=== PATIENT | female | born 1990 | race Caucasian/White ===

== ENCOUNTER 2020-01-25 16:00 | Outpatient (RCR) | payer BC, SELFPAY ==
[2020-01-11 17:33] LABS: Beta HCG Quantitative 79.02 mIU/ML
[2020-01-18 17:42] LABS: Beta HCG Quantitative 8.35 mIU/ML
--- NOTE | ~2020-01-25 | US_ITS ---
EXAMINATION: US OB <=14 wk fetus w TV DATE: 01/02/2020 16:09 INDICATION: Threatened with spotting and cramping during first trimester TECHNIQUE: Real-time pelvic ultrasound utilizing both a transvaginal and transabdominal probe was pe rformed. The interpreting radiologist was not present for the study. COMPARISON: None. FINDINGS: The uterus measures 9.6 x 5.5 x 4.5 cm. There is an intrauterine gestational sac. A yolk sac and fet al pole are identified. The crown rump length measures 3 mm, which correlates with an estimated gesta tional age of 5 weeks and 6 days. No definitive heart motion identified. The arterial flow with heart rate of 97 identified by the freight receiver appears to represent maternal circulation within the endometrium. The right ovary measures 2.2 x 1.4 x 1.6 cm. The left ovary measures 2.1 x 1.6 x 1.7 cm. And 1.3 charli lar anechoic likely corpus luteum cyst in the right ovary. There is no free fluid in the pelvis. IMPRESSION: 1. Intrauterine gestational sac with single yolk sac and pole without discernible heart motion likely due to early stage of . 2. Gestational age by ultrasound of 5 weeks 6 day(s) +/- 4 day(s) with ultrasound estimated date of delivery ([facility]) of 08/28/2020. Reviewed, dictated and finalized at location B. IMPRESSION: 1. Intrauterine gestational sac with single yolk sac and pole without dis cernible heart motion likely due to early stage of . 2. Gestational age by ultrasound of 5 weeks 6 day(s) +/- 4 day(s) with ultraso und estimated date of delivery ([facility]) of 08/28/2020.
[2020-01-25 17:37] LABS: Beta HCG Quantitative < 2.39 mIU/ML
== END 2020-04-01 23:59 | disposition home or self-care (01) ==
LOC: ANHIMG 16:00
PROVIDERS: PCP Family Medicine; Visit Provider Obstetrics & Gynecology
DX: Z29.13 Encounter for prophylactic Rho(D) immune globulin (principal); O36.0130 Maternal care for anti-D [Rh] antibodies, third trimester, not applicable or unspecified; O20.0 Threatened abortion; Z3A.01 Less than 8 weeks gestation of pregnancy
CPT/HCPCS: 36415; 76801; 76817; 84702; 85461

== ENCOUNTER 2022-03-29 07:16 | Outpatient (CLI) | payer BC, SELFPAY ==
[2022-03-29 08:10] LABS: Hemoglobin 11.3 g/dL (12.0-15.0); Mean Corpuscular HGB Conc 33.2 g/dl (32-36); Mean Corpuscular Hemoglobin 28.2 pg (26-34); Mean Corpuscular Volume 84.8 fl (80-100); Mean Platelet Volume 11.7 fl (7.4-10.4); Platelet Count Result 224 k/mm3 (150-375); Red Blood Count 4.01 M/mm3 (4.2-5.4); Red Cell Distribution Width 14.8 % (11.5-14.5); White Blood Count 10.8 K/mm3 (4.5-10.0)
[2022-03-31 12:44] LABS: Rapid Plasma Reagin Non-Reactive (NonReactive)
== END 2022-03-29 07:17 | disposition home or self-care (01) ==
LOC: ANHLAB 07:18
PROVIDERS: Visit Provider Obstetrics & Gynecology
DX: Z01.818 Encounter for other preprocedural examination (principal)
CPT/HCPCS: 36415; 85027; 86592; 86850; 86900; 86901

== ENCOUNTER 2022-03-31 05:22 | Inpatient (IN) | payer BC, SELFPAY ==
--- NOTE | 2022-03-19 15:38 | PC.NURSE ---
Verified with OR schedule and patient--C/S on 03/31/22 at 0730 Patient given requisition fo rlab draw on 03/29/22
--- NOTE | 2022-03-29 11:13 | WPDANESEPPF ---
Anes - Initial Pre Proc Eval Procedure: Operation Date: 03/31/22 07:30 Proposed Procedures p Primary Section - Chanda Stevenson MD Date/Time: 03/29/22 11:13 Surgeon: Chanda Stevenson MD Pre Op Diagnosis: c/s Patient Data Age: 31 Gender: F Height: Weight: Allergies Allergy/AdvReac Type Severity Reaction Status Date / Time No Known Allergies Allergy Mild Verified 03/31/22 06:19 Home Medications Medication Instructions Recorded Confirmed Type aspirin 81 mg tablet,delayed 162 mg PO DAILY 03/19/22 03/31/22 History release (Jessika Low Dose Aspirin) ferrous sulfate 143 mg (45 mg 143 mg PO DAILY 03/19/22 03/31/22 History iron) tablet,extended release labetalol 100 mg tablet 100 mg PO Q12H 03/19/22 03/31/22 History nifedipine 30 mg tablet,extended 30 mg PO DAILY 03/19/22 03/31/22 History release 24 hr (Procardia XL) pantoprazole 40 mg tablet,delayed 40 mg PO QAM 03/19/22 03/31/22 History release Patient hx anesthesia problems: none Family hx anesthesia problems: none Results Review: All pre-operative results and documents have been reviewed as part of the pre-operative evaluation. [facility] Family History Family History (Updated 03/19/22 @ 15:18 by Nehemiah Galeano RN) Grandparent Breast cancer in female Grandparent Congestive heart failure Diabetes mellitus Grandparent ALS (amyotrophic lateral sclerosis) Mother Hypothyroidism Social History Social History Smoking status: Never smoker Second hand tobacco smoke exposure: No Substance use: never Lack of Transportation: No Lack of Food: Never True Current Housing: I Have Housing Concerned About Future Housing: No Difficulty Paying Gas/Electric Bills: No Difficulty Paying for Meds: No Currently Unemployed: No Education: Associate Degree Difficulty w/ Childcare or Family Care: No Spiritual care concerns: No Anes - Eval Final PreProcedure Day of Procedure 03/29/22 11:13 Patient weight: obese Heart: regular rate and rhythm Lungs: clear to auscultation and normal air movement Airway: Mallampati scale class II Neurological: alert and oriented Last oral intake: >/= 8 hours ASA classification: III Emergent: no Anesthetic plan: proceed Anesthesia type and monitoring: regional spinal Results Review: All pre-operative results and documents have been reviewed as part of the pre-operative evaluation. Informed Consent: The patient's anesthetic plan and its attendant risks and benefits were discussed with the patient/family/POA. Questions were solicited and answers provided to the satisfaction of the patient/family/POA.
[2022-03-31] VITALS (61 sets, daily range): BP systolic 71–139; BP diastolic 28–89; PULSE 63–101; RESP 14–22; TEMP 36.1–36.7; O2SAT 92–98; BMI 46.5
--- OUTSIDE RECORDS SUMMARY | 2022-03-31 05:27 | XMS_ITS | Encounter Summary ---
:1990 Author Reason for Visit None recorded. Assessment and Plan 1. Chronic hypertension complicating AN D/OR reason for care during ? US, obstetric, biophysical profile + non-stress test Discussion Note: None recorded.Patient educational handouts: No information available. Plan of Care Reminders Provider Appointments Surg Post Op 04/07/2022 Chanda stone MD 9:45AM Lab None recorded. ? ? Referral None recorded. ? ? Procedures None recorded. ? ? Surgeries None recorded. ? ? Imaging US, Obstetric, Biophysical 03/19/2022 [facility] Profile + Non-stress Test Medications Name Start Date ? ? labetalol 100 mg tablet ? TAKE 1 TABLET BY MOUTH TWICE DAILY nifedipine ER 30 mg tablet,extended release 24 hr ? TAKE 1 TABLET BY MOUTH EVERY DAY pantoprazole 40 mg tablet,delayed release ? TAKE 1 TABLET BY MOUTH EVERY DAY triamcinolone acetonide 0.1 % topical cream ? APPLY SMALL AMOUNT TOPICALLY TO THE AFFECTED AREA BRETT RY 6 TO 8 HOURS Medications Administered None recorded. Vitals None recorded. Results Lab Results None recorded. Allergies None recorded. Problems Name Status Onset Date Source ? Maternal Obesity Complicating , Childbirth and the Acti ve 09/09/2021 ? Puerperium, Antepartum Active 10/02/2021 ? History of SARS-CoV-2 Active 10/02/2021 ? Breech Presentation Active ? ? Chronic Hypertension in Obstetric Context Active ? ? Procedures Date Name Performed by ? 02/19/2022 Non-stress Test [place]
--- OUTSIDE RECORDS SUMMARY | 2022-03-31 05:27 | XMS_ITS ---
:1990 Author Care Team Providers Name Role Phone Chanda Stevenson Yuridia Primary Care Provider Unavailable Allergies None recorded. Medications Name Status Start Date Stop Date ? ? labetalol 100 mg tablet Active ? Not avai lable TAKE 1 TABLET BY MOUTH TWICE DAILY metronidazole 500 mg tablet Completed ? 11/02 TK 1 T PO Q 12 H FOR 7 DAYS nifedipine ER 30 mg tablet,extended release 24 hr Active ? Not available TAKE 1 TABLET BY MOUTH EVERY DAY pantoprazole 40 mg tablet,delayed release Active ? Not available TAKE 1 TABLET BY MOUTH EVERY DAY prednisone 20 mg tablet Completed ? 11/30/19 22 TAKE 3 TABLETS BY MOUTH EVERY DAY FOR 5 DAYS Slynd 4 mg (28) tablet Completed ? triamcinolone acetonide 0.1 % topical cream Active ? Not available APPLY SMALL AMOUNT TOPICALLY TO THE AFFECTED AREA EVERY 6 TO 8 HOURS Problems Name Status Onset Date Source ? Maternal Obesity Complicating , Childbirth and the Acti ve 09/09/2021 ? Puerperium, Antepartum Active 10/02/2021 ? History of SARS-CoV-2 Active 10/02/2021 ? Breech Presentation Active ? ? Chronic Hypertension in Obstetric Context Active ? ? Procedures Date Name Performed by ? 01/02/2020 US, Obstetric, Transabdominal + Transvag inal Information not available 10/02/2021 US, Obstetric, Nuchal Translucency Sukhwinder padron [address] [place] [address] ([address]) 11/29/2021 US, Obstetric, 2Nd or 3Rd Trimester Laura aguilera
--- OUTSIDE RECORDS SUMMARY | 2022-03-31 05:27 | XMS_ITS | Encounter Summary ---
:1990 Author Reason for Visit None recorded. Assessment and Plan 1. Chronic hypertension complicating AN D/OR reason for care during ? non-stress test Discussion Note: None recorded.Patient educational handouts: No information available. Plan of Care Reminders Provider Appointments Surg Post Op 04/07/2022 9:45AM Chanda Stevenson MD Lab None recorded. ? ? Referral None recorded. ? ? Procedures None recorded. ? ? Surgeries None recorded. ? ? Imaging Non-stress Test 03/26/2022 [place] Medications Name Start Date ? ? labetalol [...] ? Procedures Date Name Performed by ? 02/26/2022 Non-stress Test [place] [address] [place] [address]
--- OUTSIDE RECORDS SUMMARY | 2022-03-31 05:27 | XMS_ITS | Encounter Summary ---
:1990 Author Reason for Visit None recorded. Assessment and Plan 1. Maternal obesity complicating pregna ncy, childbirth and the puerperium, antepartum ? US, obstetric, follow-up ? US, obstetric, biophysical profile + non-stress test Discussion Note: None recorded.Patient educational handouts: No information available. Plan of Care Reminders Provider Appointments Surg Post Op 04/07/2022 Chanda stone MD 9:45AM Lab None recorded. ? ? Referral None recorded. ? ? Procedures None recorded. ? ? Surgeries None recorded. ? ? Imaging US, Obstetric, Follow-up 03/26/2022 [place] ? US, Obstetric, Biophysical 03/26/2022 Stef[facility] Profile + Non-stress Test Medications [...] Hypertension in Obstetric Context Active ? ? Pr
--- OUTSIDE RECORDS SUMMARY | 2022-03-31 05:27 | XMS_ITS | Encounter Summary ---
:1990 Author Reason for Visit OB visit Assessment and Plan 1. Breech presentation 2. Chronic hypertension in obstetric co ntext 3. Maternal obesity complicating pregna ncy, childbirth and the puerperium, antepartum Discussion Note: None recorded.Patient educational handouts: No information available. Plan of Care Reminders Provider Appointments Surg Post Op 04/07/2022 9:45AM Chanda Stevenson MD Lab None recorded. ? ? Referral None recorded. ? ? Procedures None recorded. ? ? Surgeries None recorded. ? ? Imaging None recorded. ? ? Medications Name Start Date ? ? labetalol [...] 8 HOURS Medications Administered None recorded. Vitals Height Weight BMI Blood Pressure 5 ft 10 in 324 lbs 46.5 kg/m2 (1) 144/99 mm[H g] (2) 142/88 mm[Hg ] Results Lab Results None recorded. Allergies None recorded. Problems Name Status Onset Date Source ? Maternal Obesity Complicating , Childbirth and the Acti ve 09/09/2021 ? Puerperium, Antepartum Active 10/02/2021 ? History of SARS-CoV-2 Active 10/02/2021 ? Breech Presentation Active ? ? Chronic Hypertension in Obstetric Context Active ? ? Procedures
--- OUTSIDE RECORDS SUMMARY | 2022-03-31 05:27 | XMS_ITS | Encounter Summary ---
:1990 Author Reason for Visit OB visit Assessment and Plan 1. Breech presentation 2. Chronic hypertension in obstetric co ntext Discussion Note: None recorded.Patient educational handouts: No [...] ft 10 in 324 lbs 46.5 kg/m2 139/89 mm[Hg] Results Lab Results None recorded. Allergies None recorded. Problems Name Status Onset Date Source ? Maternal Obesity Complicating , Childbirth and the Acti ve 09/09/2021 ? Puerperium, Antepartum Active 10/02/2021 ? History of SARS-CoV-2 Active 10/02/2021 ? Breech Presentation Active ? ? Chronic Hypertension in Obstetric Context Active ? ? Procedures Date Name Performed by ? 02/26/2022 Non-stress Test [place] [id number]
--- OUTSIDE RECORDS SUMMARY | 2022-03-31 05:27 | XMS_ITS | Encounter Summary ---
[...] None recorded. ? ? Imaging Non-stress Test 03/19/2022 [place] Medications Name Start Date ? ? labetalol [...] Name Performed by ? 02/19/2022 Non-stress Test [place] [address] [place] [address]
--- OUTSIDE RECORDS SUMMARY | 2022-03-31 05:28 | XMS_ITS | Encounter Summary ---
:1990 Author Reason for Visit None recorded. Assessment and Plan 1. Maternal obesity complicating pregna ncy, childbirth and the puerperium, antepartum ? US, obstetric, biophysical profile Discussion Note: None recorded.Patient educational handouts: No information available. Plan of Care Reminders Provider Appointments Surg Post Op 04/07/2022 Chanda stone MD 9:45AM Lab None recorded. ? ? Referral None recorded. ? ? Procedures None recorded. ? ? Surgeries None recorded. ? ? Imaging US, Obstetric, Biophysical 02/26/2022 [facility] Profile Medications Name Start Date ? ? labetalol [...] ? Procedures Date Name Performed by ? 01/27/2022 US, Obstetric, Follow-up [place]
--- OUTSIDE RECORDS SUMMARY | 2022-03-31 05:28 | XMS_ITS | Encounter Summary ---
:1990 Author Reason for Visit None recorded. Assessment and Plan 1. Chronic hypertension complicating AN D/OR reason for care during ? US, obstetric, follow-up ? US, obstetric, biophysical profile + non-stress test Discussion Note: None recorded.Patient educational handouts: No information available. Plan of Care Reminders Provider Appointments Surg Post Op 04/07/2022 Chanda stone MD 9:45AM Lab None recorded. ? ? Referral None recorded. ? ? Procedures None recorded. ? ? Surgeries None recorded. ? ? Imaging US, Obstetric, Follow-up 02/19/2022 [place] ? US, Obstetric, Biophysical 02/19/2022 [place] Profile + Non-stress Test Medications Name Start [...]
--- OUTSIDE RECORDS SUMMARY | 2022-03-31 05:28 | XMS_ITS | Encounter Summary ---
:1990 Author Reason for Visit OB visit Assessment and Plan 1. Chronic hypertension in obstetric co ntext ? labetalol 100 mg tablet 2. Breech presentation 3. Maternal obesity complicating pregna ncy, childbirth [...] BMI Blood Pressure 5 ft 10 in 325 lbs 46.6 kg/m2 141/82 mm[Hg] Results Lab Results None recorded. Allergies None recorded. Problems Name Status Onset Date Source ? Maternal Obesity Complicating , Childbirth and the Acti ve 09/09/2021 ? Puerperium, Antepartum Active 10/02/2021 ? History of SARS-CoV-2 Active 10/02/2021 ? Breech Presentation Active ? ? Chronic Hypertension in Obstetric Context Active ? ? Procedures Date
--- OUTSIDE RECORDS SUMMARY | 2022-03-31 05:28 | XMS_ITS | Encounter Summary ---
[...] None recorded. ? ? Imaging Non-stress Test 03/12/2022 [place] Medications Name Start Date ? ? labetalol [...] Name Performed by ? 02/19/2022 Non-stress Test [place] [address] [place] [address]
--- OUTSIDE RECORDS SUMMARY | 2022-03-31 05:28 | XMS_ITS | Encounter Summary ---
[...] recorded. ? ? Imaging US, Obstetric, Biophysical 03/05/2022 Stef[facility] b[facility] Profile + Non-stress Test Medications [...]
--- OUTSIDE RECORDS SUMMARY | 2022-03-31 05:28 | XMS_ITS | Encounter Summary ---
:1990 Author Reason for Visit None recorded. Assessment and Plan 1. Chronic hypertension in obstetric co ntext ? nifedipine ER 30 mg tablet,extended r elease 24 hr 2. Maternal obesity complicating pregna ncy, childbirth and [...] BMI Blood Pressure 5 ft 10 in 318 lbs 45.6 kg/m2 (1) 158/91 mm[H g] (2) 140/88 mm[Hg ] Results Lab Results None recorded. Allergies None recorded. Problems Name Status Onset Date Source ? Maternal Obesity Complicating , Childbirth and the Acti ve 09/09/2021 ? Puerperium, Antepartum Active 10/02/2021 ? History of SARS-CoV-2 Active 10/02/2021 ? Breech Presentation Active ? ? Chronic Hypertension in Obstetric Context Active ?
--- OUTSIDE RECORDS SUMMARY | 2022-03-31 05:28 | XMS_ITS | Encounter Summary ---
[...] None recorded. ? ? Imaging Non-stress Test 03/05/2022 [place] Medications Name Start Date ? ? labetalol [...] Name Performed by ? 02/19/2022 Non-stress Test [place] [address] [place] [address]
--- OUTSIDE RECORDS SUMMARY | 2022-03-31 05:28 | XMS_ITS | Encounter Summary ---
:1990 Author Reason for Visit None recorded. Assessment and Plan 1. Chronic hypertension complicating AN D/OR reason for care during ? US, obstetric, follow-up Discussion Note: None recorded.Patient educational handouts: No information available. Plan of Care Reminders Provider Appointments Surg Post Op 04/07/2022 9:45AM Chanda Stevenson MD Lab None recorded. ? ? Referral None recorded. ? ? Procedures None recorded. ? ? Surgeries None recorded. ? ? Imaging US, Obstetric, 01/27/2022 [place] Follow-up Medications Name Start Date ? ? labetalol [...] Performed by ? 01/27/2022 US, Obstetric, Follow-up [place] [address]
--- OUTSIDE RECORDS SUMMARY | 2022-03-31 05:28 | XMS_ITS | Encounter Summary ---
:1990 Author Reason for Visit OB visit Assessment and Plan 1. Chronic hypertension in obstetric co ntext ? CMP, serum or plasma ? CBC w/ auto diff ? uric acid, serum or plasma ? protein:creatinine ratio, urine 2. Breech presentation ? section (SURG) 3. Gastroesophageal reflux disease ? Protonix 40 mg tablet,delayed release Discussion Note: None recorded.Patient educational handouts: No information available. Plan of Care Reminders Provider Appointments Surg Post Op 04/07/2022 9:45AM Chanda Stevenson MD Lab CMP, Serum or Plasma 02/26/2022 [facility] (Lab) ? CBC W/ Auto Diff 02/26/2022 [facility] (Lab) ? Uric Acid, Serum or 02/26/2022 [facility] Plasma (Lab) ? Protein:creatinine Ratio, 02/26/2022 [facility] Urine (Lab) Referral None recorded. ? ? Procedures None recorded. ? ? Surgeries Section (SURG) 03/31/2022 [facility] None recorded. ? ? Medications Name [...]
--- OUTSIDE RECORDS SUMMARY | 2022-03-31 05:28 | XMS_ITS | Encounter Summary ---
:1990 Author Reason for Visit None recorded. Assessment and Plan 1. Maternal obesity complicating pregna ncy, childbirth and the puerperium, antepartum ? US, obstetric, biophysical profile + non-stress test Discussion Note: None recorded.Patient educational handouts: No information available. Plan of Care Reminders Provider Appointments Surg Post Op 04/07/2022 Chanda stone MD 9:45AM Lab None recorded. ? ? Referral None recorded. ? ? Procedures None recorded. ? ? Surgeries None recorded. ? ? Imaging US, Obstetric, Biophysical 03/12/2022 [place] Profile + Non-stress Test Medications Name Start [...] Name Performed by ? 02/19/2022 Non-stress Test [place]
--- OUTSIDE RECORDS SUMMARY | 2022-03-31 05:28 | XMS_ITS | Encounter Summary ---
:1990 Author Reason for Visit None recorded. Assessment and Plan 1. Benign essential hypertension compli cating , childbirth and the puerperium - not delivered ? non-stress test Discussion Note: None recorded.Patient educational handouts: No information available. Plan of Care Reminders Provider Appointments Surg Post Op 04/07/2022 9:45AM Chanda Stevenson MD Lab None recorded. ? ? Referral None recorded. ? ? Procedures None recorded. ? ? Surgeries None recorded. ? ? Imaging Non-stress Test 02/19/2022 [place] Medications Name Start Date ? ? labetalol [...] Performed by ? 01/27/2022 US, Obstetric, Follow-up [place] [address] [place], [place]
--- OUTSIDE RECORDS SUMMARY | 2022-03-31 05:28 | XMS_ITS | Encounter Summary ---
:1990 Author Reason for Visit OB visit Assessment and Plan 1. Chronic hypertension in obstetric co ntext 2. Maternal obesity complicating pregna ncy, childbirth and the puerperium, antepartum 3. Breech presentation Discussion Note: None recorded.Patient educational handouts: No [...] BMI Blood Pressure 5 ft 10 in 326 lbs 46.8 kg/m2 134/85 mm[Hg] Results Lab Results None recorded. Allergies [...]
--- OUTSIDE RECORDS SUMMARY | 2022-03-31 05:28 | XMS_ITS | Encounter Summary ---
[...] BMI Blood Pressure 5 ft 10 in 321 lbs 46.1 kg/m2 (1) 158/96 mm[H g] (2) 139/84 mm[Hg ] Results Lab Results None recorded. Allergies None recorded. Problems Name Status Onset Date Source ? Maternal Obesity Complicating , Childbirth and the Acti ve 09/09/2021 ? Puerperium, Antepartum Active 10/02/2021 ? History of SARS-CoV-2 Active 10/02/2021 ? Breech Presentation Active ? ? Chronic Hypertension in Obstetric Context Active ? ? Procedures
--- NOTE | 2022-03-31 06:01 | LDADM ---
This patient, Alexandria Vergara, was admitted to Labor/Delivery/Recovery 120 on 03/31/22 at 05:22. Plans for labor, pain management and were discussed with patient. Patient/family oriented to hospital policies and general routines including ID bracelet, bed and alarms, visiting hours, pain management, procedures, bathroom and other care routines, personal items, smoking policy, room service/diet and guest tray routines, infant security routines, and visiting hours. Patient/Family are encouraged to report perceived risks to care and to ask questions if they do not understand what they are told or what they should do. See OBIX for further documentation.
[2022-03-31] MEDS: LACTATED RINGERS 1,000 ML 999 ML IV CONT (06:13)
[2022-03-31] MEDS: LACTATED RINGERS 1,000 ML 125 ML IV CONT (07:20)
--- NOTE | 2022-03-31 07:27 | PM.IMHP ---
H&P: HPI History of Present Illness Date/Time: 03/31/22 07:27 Chief Complaint: CS Narrative: Emelina is a at 38.2 with SHARRON Lua here for primary CS breech. Also had COVID this . Review of Systems Review of Systems: All systems reviewed & are unremarkable except as noted in HPI and below [facility] Family History Family History (Updated 03/19/22 @ 15:18 by Nehemiah Galeano RN) Grandparent Breast cancer in female Grandparent Congestive heart failure Diabetes mellitus Grandparent ALS (amyotrophic lateral sclerosis) Mother Hypothyroidism Social History Social History Smoking status: Never smoker Second hand tobacco smoke exposure: No Substance use: never Lack of Transportation: No Lack of Food: Never True Current Housing: I Have Housing Concerned About Future Housing: No Difficulty Paying Gas/Electric Bills: No Difficulty Paying for Meds: No Currently Unemployed: No Education: Associate Degree Difficulty w/ Childcare or Family Care: No Spiritual care concerns: No Meds Home Medications and Allergies Home Medications Medication Instructions Recorded Confirmed Type aspirin 81 mg tablet,delayed 162 mg PO DAILY 03/19/22 03/31/22 History release (Jessika Low Dose Aspirin) ferrous sulfate 143 mg (45 mg 143 mg PO DAILY 03/19/22 03/31/22 History iron) tablet,extended release labetalol 100 mg tablet 100 mg PO Q12H 03/19/22 03/31/22 History nifedipine 30 mg tablet,extended 30 mg PO DAILY 03/19/22 03/31/22 History release 24 hr (Procardia XL) pantoprazole 40 mg tablet,delayed 40 mg PO QAM 03/19/22 03/31/22 History release Allergies Allergy/AdvReac Type Severity Reaction Status Date / Time No Known Allergies Allergy Mild Verified 03/31/22 06:19 Vital Signs Vital Signs - 24 hr 03/31/22 05:41 03/31/22 06:18 Pulse Rate 94 Blood Pressure 139/89 Oxygen Delivery Room Air Exam Const: General: no acute distress Resp: Effort & Inspection: normal respiratory effort Auscultation: clear to auscultation bilaterally Cardio: Rate: regular rate Rhythm: regular rhythm GI: GI Palp: Yes Soft to palpation Extrem: General: normal to inspection Assessment and Plan Assessment and plan (1) Breech presentation: Code(s): O32.1XX0 - Maternal care for breech presentation, not applicable or unspecified Status: Acute (2) Chronic hypertension affecting : Code(s): O10.919 - Unspecified pre-existing hypertension complicating , unspecified trimester Status: Acute Plan COnsented for primary CS, will proceed BPs stable with cHTN.
[2022-03-31] MEDS: ceFAZolin 3 GM/D5W 100 ML 100 ML IVPB (07:28)
--- NOTE | 2022-03-31 07:31 | WPDHPUPDATE1 ---
History and Physical Update Update Date/Time: 03/31/22 07:31 History and Physical has been reviewed, including an updated exam of the patient. There are NO changes in the patient's condition. Risks, benefits, and alternatives have been discussed and questions answered. Patient agrees to proceed with procedure.
[2022-03-31] MEDS: KETOROLAC 30 MG/ML VIAL (*BKC) IV PUSH (08:52)
--- NOTE | 2022-03-31 09:09 | PM.OBPRVD ---
OB - Delivery Note Procedure Delivery date: 03/31/22 Procedure: Procedures Operation Date: 03/31/22 07:30 <No data on this case meets the specified criteria> Primary low transverse section Events: Breech Presentation and Chronic Hypertension Route of delivery: Specimen: Yes (placenta) Quantitative Blood Loss (ml): 1,390 Anesthesia type: Epidural Disposition: Floor Complications: none Narrative: The patient was taken to the OR and had her epidural anesthesia dosed adequately. She was placed in dorsal supine position with left lateral tilt. SCDs and hutchinson had been placed. She was prepped and draped in the normal sterile fashion. A Pfannensteil skin incision was made and carried through to the underlying layer of fascia. The fascia was incised in the midline and then extended laterally using Epps scissors. The muscles were in the midline and the peritoneum was entered bluntly. The peritoneal incision was extended inferiorly and superiorly with care to avoid the bladder. The bladder blade was then inserted, the vesicouterine peritoneum was grasped, incised with Metzenbaum scissors, and a bladder flap created. The bladder blade was reinserted. A low transverse uterine incision was made with a scalpel and extended bluntly. AROM was performed and fluid was noted to be clear. The baby was delivered easily in breech presentation. Nuchal cord x3 was noted. The baby's oropharynx was suctioned. After 30 seconds, the cord was clamped and cut and the infant was handed off. Cord blood was obtained and the placenta was then removed manually. The uterus was exteriorized. A moist lap sponge was used to curette the endometrium. The uterine incision was then closed with two layers of 0-Vicryl in a running, locking fashion. Good hemostasis was noted. The posterior cul de sac was irrigated with normal saline and cleared of all clot and debris. The uterus was returned to the abdomen. Both lateral gutters were then irrigated. The rectus muscles were inspected and found to be hemostatic. The fascia was reapproximated using 0-Vicryl in running fashion. The subcutaneous tissue was irrigated with normal saline and made hemostatic with Bovie electrocautery. The subcutaneous tissue was reapproximated with a layer of running 2-0 plain gut. The skin was then closed with absorbable lorena. Steri strips and a bandage were applied. The uterus was evacuated. The patient tolerated the procedure very well. All counts were correct. She was taken to the recovery room in good condition. Baby Date of : 03/31/22 Time of : 08:22 Weeks of gestation at delivery: 38 Infant gender: Male Weight (pounds): 6 Weight (ounces): 4 presentation: breech Placenta delivery description: Manual Removal Cord Vessel Description: 3 Vessels, Nuchal Cord (x3) and Clamped/Cut score one minute: 8 score five minutes: 9
[2022-03-31] MEDS: COSYNTROPIN 0.25 MG/ML VIAL 0.75 MG IV PUSH (10:34)
[2022-03-31] MEDS: SIMETHICONE 80 MG TAB.CHEW PO ×3 (12:09→23:40)
[2022-03-31] MEDS: DEXTROSE 5%/0.45% SOD CHL 1,000 ML 125 ML IV CONT (12:09)
--- NOTE | 2022-03-31 12:46 | OBPPTRN ---
1117-Patient transferred to post room #285 via stretcher. Support person present. Oriented to unit, room, information board, rooming in, admission packet and security measures. Patient verbalizes understanding.
--- NOTE | 2022-03-31 13:59 | PC.NURSE ---
[id number] Introductions were made, then consulted with patient to assess needs related to . Mother led the conversation with the?experience so far going well. Mother voiced understanding of information. is skin to skin with mother but is sleeping. Encouraged understanding of responsive feeding, stimulating with changing position, massage touch and how to watch for early feeding signs. Reviewed positioning and ear, shoulder, hip alignment, supporting the breast, asymmetrical latch (off-center), and leading with the chin with a big open side gape. Infant latched optimally to the right breast in football position. Education given to parents of how to visualize suck/swallow ratios, listen for drinking at the breast and keep actively . Infant was able to maintain latch without discomfort to mother. Nipple care reviewed with optimal latch, good positioning and with a deep latch cautioning away from habits that allow to suckle on the nipple. Parents voiced visualizing the rocking motion of the effective . Reviewed with parents the frequency of feeding on demand about every 8-12 times in 24 hours (every 2-3 hours), milk production, duration of feeding, signs of adequate intake/output and how to record on the feeding sheet. Resources used to facilitate learning were used with the tool and mom/baby guide. Mother voiced understanding of responsive feedings, stimulating with skin to skin, hand expressed colostrum, massage touch, talking to infant to encourage if it has been 2 -3 hours since the start of the last , to call if infant does not latch or there is discomfort with . Reported to the primary RN.
[2022-03-31] MEDS: ONDANSETRON INJ 4 MG/2 ML VIAL IV PUSH (16:32)
[2022-03-31] MEDS: DOCUSATE SODIUM 100 MG CAPSULE PO (16:35)
[2022-03-31] MEDS: HYDROcodone/acetaminophen (*CRX) 5-325 MG TABLET 1 TAB PO ×2 (20:23→23:39)
[2022-03-31] MEDS: KCL 20 MEQ/D5/0.45% SOD CHL 1,000 ML 125 ML IV CONT (20:24)
[2022-03-31] MEDS: LABETALOL HCL 100 MG TABLET PO (23:38)
[2022-03-31] MEDS: IBUPROFEN 600 MG TABLET PO (23:39)
[2022-03-31] MEDS: NIFEdipine 30 MG TAB.ER.24 PO (23:40)
[2022-04-01] VITALS (9 sets, daily range): BP systolic 111–136; BP diastolic 55–87; PULSE 72–96; RESP 18; TEMP 36.6–37.7; O2SAT 94–100
[2022-04-01 04:57] LABS: Basophils Percent Auto 0.2 % (0.2-1.2); Eosinophils Percent Auto 0.3 % (0-4.4); Hematocrit 27.3 % (37.0-47.0); Hemoglobin 8.8 g/dL (12.0-15.0); Immature Granulocyte Absolute 0.07 K/mm3 (0.00-0.031); Immature Granulocyte Percent A 0.6 % (0-0.5); Lymphocytes Percent Auto 10.2 % (18.3-44.2); Mean Corpuscular HGB Conc 32.2 g/dl (32-36); Mean Corpuscular Hemoglobin 28.4 pg (26-34); Mean Corpuscular Volume 88.1 fl (80-100); Mean Platelet Volume 11.3 fl (7.4-10.4); Monocytes Absolute Auto 0.7 K/mm3 (0.1-0.6); Monocytes Percent Auto 5.3 % (2.6-8.5); Neutrophils Absolute Auto 10.6 K/mm3 (1.3-6.7); Neutrophils Percent Auto 83.4 % (45.5-73.1); Platelet Count Result 192 k/mm3 (150-375); Red Cell Distribution Width 15.1 % (11.5-14.5); White Blood Count 12.7 K/mm3 (4.5-10.0)
--- NOTE | 2022-04-01 07:18 | PM.OBPNVD ---
OB - PN: Subj Subjective Date/time seen: 04/01/22 07:18 Patient comments: no complaints, pain well controlled and other baby status: NICU feeding status: pumping and storing Narrative: POD 1 from primary CS. Doing well. Normal lochia. Eating, ambulating, hutchinson out. SOme shoulder pain. TRAYLOR with sitting up or standing. Resolves with lying flat. OB - PN: Obj Data Labs CBC & Chem 7: 04/01/22 04:22 Labs: Laboratory Results - last 24 hr 04/01/22 04:22 WBC 12.7 H RBC 3.10 L Hgb 8.8 L Hct 27.3 L MCV 88.1 MCH 28.4 MCHC 32.2 RDW 15.1 H Plt Count 192 MPV 11.3 H Immature Gran % (Auto) 0.6 H Neut % (Auto) 83.4 H Lymph % (Auto) 10.2 L [place] % (Auto) 5.3 Eos % (Auto) 0.3 Baso % (Auto) 0.2 Lymph # (Auto) 1.30 [place] # (Auto) 0.7 H Eos # (Auto) 0.0 Baso # (Auto) 0.0 Abs Immat Gran (auto) 0.07 H Absolute Neuts (auto) 10.6 H Absolute Nucleated RBC 0.0 Nucleated RBC % 0.0 OB - PN A/P Assessment and Plan (1) Chronic hypertension affecting : Code(s): O10.919 - Unspecified pre-existing hypertension complicating , unspecified trimester Status: Acute (2) delivery delivered: Code(s): O82 - Encounter for delivery without indication Status: Acute (3) Positional headache: Code(s): R51.0 - Headache with orthostatic component, not elsewhere classified Status: Acute (4) Anemia, blood loss: Code(s): D50.0 - Iron deficiency anemia secondary to blood loss (chronic) Status: Acute Plan day: 1 Plan: routine care Comments: anesthesia to eval for spinal TRAYLOR. did have a difficult spinal. is also significantly anemic given where she started. if anesthesia does not think spinal TRAYLOR or if unable to do blood patch, consider blood transfusion to see if treating anemia helps TRAYLOR. will do IV iron. Time Spent With Patient Time: Total time spent is greater than 50% in coordination of care (as documented) at patient's floor/unit and/or counseling patient: Exam Narrative: NAD abdomen soft, appropriately tender, incision bandaged Extremities nontender with 1+ edema
[2022-04-01] MEDS: DOCUSATE SODIUM 100 MG CAPSULE PO ×2 (08:23→17:40)
[2022-04-01] MEDS: PANTOPRAZOLE 40 MG TABLET PO (08:23)
[2022-04-01] MEDS: LABETALOL HCL 100 MG TABLET PO ×2 (08:23→21:34)
[2022-04-01] MEDS: MULTIVIT/MIN/PREN/FOL AC/IRON TABLET 1 TAB PO (08:23)
[2022-04-01] MEDS: HYDROcodone/acetaminophen (*CRX) 5-325 MG TABLET 1 TAB PO ×2 (08:24→17:40)
[2022-04-01] MEDS: POLYSACCHARIDE IRON COMPLEX 150 MG CAPSULE PO ×2 (08:24→17:40)
[2022-04-01] MEDS: IBUPROFEN 600 MG TABLET PO ×2 (08:24→17:40)
[2022-04-01] MEDS: IRON SUCROSE COMPLEX 200 MG in SODIUM CHLORIDE 0.9% IV 50 ML 120 MG IVPB (09:53)
--- NOTE | 2022-04-01 10:55 | PC.NURSE ---
[id number] Consulted with patient to assess needs. Parents attempted to breastfeed after the circumcision and states he breastfed for 2 min, then fell asleep. Parents received assistance in waking infant to breastfeed. Demonstrated unwrapping, undressing and placing infant upright on mother skin to skin encouraging massage touch. burped, then feeding cues were visualized. was positioned to the left breast using the football hold and effectively began to breastfeed. Mother states besides one not so good feeding and infant being sleepy this morning has been going well and without pain. Reviewed the benefits of skin to skin (unwrapping infant and placing vertically on her chest), responsive feeding and how to watch for early feeding signs, frequency of feeding on demand about every 8-12 times in 24 hours (every 2-3 hours), milk production, duration of feeding, signs of adequate intake/output and how to record on the feeding sheet. Reviewed positioning and ear, shoulder, hip alignment, supporting the breast, asymmetrical latch (off-center), and leading with the chin with a big open side gape. Nipple care reviewed with optimal latch and good positioning. Mother voiced understanding of responsive feedings, stimulating with skin to skin, massage touch, talking to infant to encourage if it has been 2 -3 hours since the start of the last , to call if infant does not latch or there is discomfort with .
[2022-04-01] MEDS: SIMETHICONE 80 MG TAB.CHEW PO ×2 (13:04→17:40)
[2022-04-01] MEDS: HYDROcodone/acetaminophen (*CRX) 10-325 MG TABLET 1 TAB PO (13:04)
--- NOTE | 2022-04-01 14:14 | PC.NURSE ---
1330 Anesthesia present for epidural blood patch. Consent signed. procedure performed, pt states immediate relief.
[2022-04-01] MEDS: NIFEdipine 30 MG TAB.ER.24 PO (21:34)
[2022-04-02] MEDS: SIMETHICONE 80 MG TAB.CHEW PO ×3 (05:00→16:02)
[2022-04-02] MEDS: HYDROcodone/acetaminophen (*CRX) 5-325 MG TABLET 1 TAB PO ×4 (05:00→23:04)
[2022-04-02] MEDS: IBUPROFEN 600 MG TABLET PO ×3 (05:01→23:04)
--- NOTE | 2022-04-02 07:06 | PM.OBPNVD ---
OB - PN: Subj Subjective Date/time seen: 04/02/22 07:06 Patient comments: incisional pain and tolerating diet baby status: doing well and nursing well [place] feeding status: exclusively breast feeding Narrative: NO flatus yet, c/o gas pain. NO N/V. OB - PN: Obj Data Labs 04/01/22 04:22 OB - PN A/P Plan day: 2 Plan: routine care Comments: TRAYLOR resolved with blood patch simethicone for gas, ambulation IV iron possibly home tomorrow Time Spent With Patient Time: Total time spent is greater than 50% in coordination of care (as documented) at patient's floor/unit and/or counseling patient: Exam Narrative: NAD abdomen soft, appropriately tender, incision CDI Extremities nontender with 1+ edema
--- NOTE | 2022-04-02 07:15 | PC.NURSE ---
PT introductions made and plan of care discussed per post op c section, pain management, breast feeding, daily care activities. Pt and spouse both recipients of such instructions and no barriers to learning identified at this time. PT and spouse both receive instructions this shift per one to one discussion, mom baby care guide and demonstrations. PT verbalized understanding of such care.
--- NOTE | 2022-04-02 08:45 | WPDANESEBPP ---
Anes - Epidural Blood Patch PN Date/Time: 04/02/22 08:45 Consent: I have discussed with the patient/family/POA, the rationale of a lumbar epidural autologous blood patch for the treatment of post-dural puncture headache (spinal headache), including associated potential risks, benefits, complications and side effects. I have also discussed more conservative treatment options such as intravenous hydration, caffeine and non-prescription analgesics. The patient/family/POA, understand(s) and wish(es) to proceed with epidural autologous blood patch as treatment for the patient's post-dural puncture headache. Time-Out: A pre-procedural Time-Out was completed immediately before starting the procedure and confirmed: Patient Identification, Site, Procedure, Patient Position and the Availability of Requisite Equipment. Clinical Indications: post dural puncture headache Epidural Insertion Note Patient position: sitting Skin prep: chlorhexidine Needle: 18 gauge Tuohy-Schliff Technique: loss of resistance Skin anesthesia: lidocaine 1% Observations: tolerated well and blood (20cc slowly injected w/out discomfort/resistance) Complications: none
[2022-04-02 09:53] VITALS: PULSE 92
[2022-04-02] MEDS: LABETALOL HCL 100 MG TABLET PO ×2 (09:53→22:51)
[2022-04-02] MEDS: DOCUSATE SODIUM 100 MG CAPSULE PO ×2 (09:53→16:00)
[2022-04-02] MEDS: PANTOPRAZOLE 40 MG TABLET PO (09:54)
[2022-04-02] MEDS: MULTIVIT/MIN/PREN/FOL AC/IRON TABLET 1 TAB PO (09:54)
[2022-04-02] MEDS: LANOLIN (LANSINOH) 7.5 GM CREAM 1 APPLIC TOPICAL (09:55)
[2022-04-02] MEDS: POLYSACCHARIDE IRON COMPLEX 150 MG CAPSULE PO (09:55)
[2022-04-02 10:00] VITALS: BP 122/66; PULSE 92; RESP 18; TEMP 36.1; O2SAT 97
--- NOTE | 2022-04-02 12:23 | PC.NURSE ---
1220 - Mother verbalizes she is able to independently latch with appropriate positioning/alignment. She denies any nipple discomfort and is responsively . Infant is currently meeting outcomes for weight, output, jaundice and feeding frequencies of 8-12 times in 24 hours. Mother declines any additional assistance/education at this time. Mother is encouraged to call for assistance if her doesn?t latch or there is discomfort with latching. Mother voiced understanding of information shared and mom and baby guide reviewed for additional resource information .
[2022-04-02 19:20] VITALS: BP 120/68; PULSE 92; RESP 16; TEMP 37.1
[2022-04-02] MEDS: NIFEdipine 30 MG TAB.ER.24 PO (22:51)
[2022-04-03] MEDS: IBUPROFEN 600 MG TABLET PO (07:38)
[2022-04-03] MEDS: HYDROcodone/acetaminophen (*CRX) 5-325 MG TABLET 1 TAB PO (07:39)
[2022-04-03 08:20] VITALS: BP 142/83; PULSE 81; RESP 18; TEMP 36.6; O2SAT 99
--- NOTE | 2022-04-03 08:24 | PM.OBPNVD ---
OB - PN: Subj Subjective Date/time seen: 04/03/22 08:24 Patient comments: no complaints, pain well controlled, incisional pain, tolerating diet and flatus present OB - PN: Obj Data Labs 04/01/22 04:22 OB - PN A/P Time Spent With Patient Time: Total time spent is greater than 50% in coordination of care (as documented) at patient's floor/unit and/or counseling patient:
--- NOTE | 2022-04-03 08:31 | PM.OBDSVD ---
DS: Admitting Diagnosis Discharge Date 04/03/22 Admitting Diagnosis term OB - DS: Summary OB Procedures : None OB Procedures Intrapartum: OB Procedures: : None Peripartum Data Procedures: Procedures Operation Date: 03/31/22 07:30 Actual Procedure Side Surgeon p Primary Section Bilateral Chanda Stevenson MD Time Spent with Patient Time attestation: Total time spent providing and/or coordinating discharge services: DS: Data Data Completed and Pending Completed studies during hospitalization: Pending at discharge 03/31/22 09:30 Surgical [PTH] Routine Discharge Plan Discharge Attending physician on discharge: Trell Mondragon Discharging Clinician: Trell Mondragon Patient Disposition: Home, Self-Care Activity: pelvic rest Diet: regular Patient Instructions: Antibiotic Form Stand Alone Forms: General Discharge Information Follow-up/Referrals: Trell Mondragon MD [Physician] - Discharge Medications: New hydrocodone-acetaminophen 5-325 mg tablet 1 - 2 tablet PO Q6H PRN (Reason: pain) Qty: 25 0RF Continued pantoprazole 40 mg Tablet,Delayed Release (Dr/Ec) 40 mg PO QAM ferrous sulfate 143 mg (45 mg iron) Tablet Extended Release 143 mg PO DAILY Discontinued aspirin [Jessika Low Dose Aspirin] 81 mg Tablet,Delayed Release (Dr/Ec) 162 mg PO DAILY labetalol 100 mg Tablet 100 mg PO Q12H nifedipine [Procardia XL] 30 mg Tablet Extended Release 24hr 30 mg PO DAILY Date of admission: 03/31/22 05:22 Primary Care Provider: PHYSICIAN,BUSINESS ANALYST CONSULTANT Admitting Provider: Chanda Stevenson Attending physician on admission: Chanda Stevenson Condition: Stable
[2022-04-03 09:03] VITALS: PULSE 80
[2022-04-03] MEDS: PANTOPRAZOLE 40 MG TABLET PO (09:03)
[2022-04-03] MEDS: DOCUSATE SODIUM 100 MG CAPSULE PO (09:03)
[2022-04-03] MEDS: LABETALOL HCL 100 MG TABLET PO (09:03)
[2022-04-03] MEDS: MULTIVIT/MIN/PREN/FOL AC/IRON TABLET 1 TAB PO (09:03)
[2022-04-03] MEDS: POLYSACCHARIDE IRON COMPLEX 150 MG CAPSULE PO (09:03)
[2022-04-04 09:49] VITALS: BP 134/80; PULSE 92; RESP 20; TEMP 36.6; O2SAT 98
== END 2022-04-03 13:45 | disposition home or self-care (01) | DRG 787 ==
LOC: ANHOB2 04-03 10:49 → ANHLDR 04-04 09:17 → ANHOB2 04-04 09:17
PROVIDERS: Admitting Provider Obstetrics & Gynecology; Visit Provider Obstetrics & Gynecology
PROC: 10D00Z1 Extraction of Products of Conception, Low, Open Approach (ICD-10-PCS; CPT 59514; principal; 2022-03-31 07:30)
DX: O10.92 Unspecified pre-existing hypertension complicating childbirth (principal); D62 Acute posthemorrhagic anemia; Z37.0 Single live birth; Z3A.38 38 weeks gestation of pregnancy; O69.81X0 Labor and delivery complicated by cord around neck, without compression, not applicable or unspecified; O32.1XX0 Maternal care for breech presentation, not applicable or unspecified; O74.5 Spinal and epidural anesthesia-induced headache during labor and delivery; O90.81 Anemia of the puerperium
CPT/HCPCS: 36415; 85025; 85027; 86592; 86850; 86900; 86901; 88307; A9270; J0131; J0690; J0834; J1100; J1165; J1756; J1885; J2274; J2370; J2405; J3480; J7120